=== PATIENT | male | born 1970 | race Caucasian/White ===

== ENCOUNTER 2017-09-01 08:45 | Emergency (ER) | payer OTHER ==
[~2017-09-01] VITALS: Ht 177.8 cm; Wt 86.2 kg
[~2017-09-01 08:45] MED LIST: ALBU8HFA2 INH; ALBU90I INH; ALBU90OI INH; AZIT250 PO; AZIT500 PO; CEPH500 PO; CHLO25 PO; CIPR500 PO; CLIN150 PO; CODGUAEL PO; CYCL10 PO; DOXY100 PO; GUAI120S1 PO; GUAI600T33 PO; HYDACE5 PO; HYDMOR2; HYDR1TAB94 PO; IBUP600 PO; IBUP800; IBUPRO; IBUPROFEN; KETO10 PO; METPRE4DP PO; Monodox100 MG PO; NAPR500 PO; NAPR550 PO; Norco 5-325 Ta1 EACH PO; OMEP40CA12 PO; OSEL75CA PO; OXYACE5T PO; PHENY100ER; PHENY100ER PO; PHENY50CH; PRED10 PO; PRED20 PO; PROCODE120 PO; PROM25 PO; Prednisone20 MG PO; Pulmicort Fle180 MCG INH; RXOXYACE PO; SILDENAFIL20 MG PO; SULTRIDS PO; Ultram50 MG PO; VICODEN; Ventolin5 MG/1 ML INH; Zithromax250 MG PO
[2017-09-01] MEDS ORDERED: Zithromax250 MG PO (10:08)
[2017-09-01] MEDS ORDERED: ALBU90OI INH (10:08)
[2017-09-01] MEDS ORDERED: Prednisone20 MG PO (10:08)
[2017-09-01] MEDS ORDERED: BENZ100A PO (10:08)
== END 2017-09-01 10:29 | disposition home or self-care (01) ==
LOC: ER 08:45
DX: R05 Cough (principal); Z88.0 Allergy status to penicillin; Z88.8 Allergy status to other drugs, medicaments and biological substances; Z79.899 Other long term (current) drug therapy; J45.909 Unspecified asthma, uncomplicated; G40.909 Epilepsy, unspecified, not intractable, without status epilepticus; F17.210 Nicotine dependence, cigarettes, uncomplicated
CPT/HCPCS: 71046; 99284

== ENCOUNTER → 2018-04-17 | Outpatient (CLI) | payer OTHER ==
[~2018-04-17] MED LIST changes: +BENZ100A PO
[2018-04-17 11:49] LABS: Dilantin (Phenytoin), Total 17.3 ug/mL (10.0-20.0)
== END | disposition home or self-care (01) ==
LOC: LAB UCHC 08:52 → LAB SHORT 08:52 → EDSTATUS 12:41
PROVIDERS: Family Medicine
DX: G40.909 Epilepsy, unspecified, not intractable, without status epilepticus (principal)
CPT/HCPCS: 80185

== ENCOUNTER 2018-08-28 19:56 | Emergency (ER) | payer OTHER ==
[~2018-08-28] VITALS: Ht 175.3 cm; Wt 81.7 kg
== END 2018-08-28 21:29 | disposition left against medical advice (07) ==
LOC: ER 19:56
DX: Z53.21 Procedure and treatment not carried out due to patient leaving prior to being seen by health care provider (principal)

== ENCOUNTER 2021-02-05 12:06 | Emergency (ER) | payer OTHER ==
[~2021-02-05] VITALS: Ht 175.3 cm; Wt 86.2 kg
[2021-02-05] MEDS ORDERED: ALBU90OI INH (13:20)
== END 2021-02-05 13:31 | disposition home or self-care (01) ==
LOC: ER 12:06
DX: B34.9 Viral infection, unspecified (principal); Z20.822 Contact with and (suspected) exposure to COVID-19; Z88.0 Allergy status to penicillin; Z88.6 Allergy status to analgesic agent; J45.909 Unspecified asthma, uncomplicated; G40.909 Epilepsy, unspecified, not intractable, without status epilepticus; F17.210 Nicotine dependence, cigarettes, uncomplicated
CPT/HCPCS: 71045; 99284-25; A9270

== ENCOUNTER 2021-04-01 08:42 | Emergency (ER) | payer OTHER ==
[~2021-04-01] VITALS: Ht 175.3 cm; Wt 77.1 kg
[2021-04-01] MEDS ORDERED: XARELTO15 MG PO (09:33)
== END 2021-04-01 10:02 | disposition home or self-care (01) ==
LOC: ER 08:42
DX: I82.811 Embolism and thrombosis of superficial veins of right lower extremity (principal); D68.2 Hereditary deficiency of other clotting factors; G40.909 Epilepsy, unspecified, not intractable, without status epilepticus; J44.9 Chronic obstructive pulmonary disease, unspecified; F17.210 Nicotine dependence, cigarettes, uncomplicated; Z88.0 Allergy status to penicillin; Z88.6 Allergy status to analgesic agent; Z79.899 Other long term (current) drug therapy

== ENCOUNTER 2021-12-21 19:51 | Emergency (ER) | payer OTHER ==
[~2021-12-21] VITALS: Ht 177.8 cm; Wt 86.2 kg
[~2021-12-21 19:51] MED LIST changes: +XARELTO15 MG PO
== END 2021-12-21 21:49 | disposition home or self-care (01) ==
LOC: ER 19:51
DX: S20.211A Contusion of right front wall of thorax, initial encounter (principal); J45.909 Unspecified asthma, uncomplicated; F17.210 Nicotine dependence, cigarettes, uncomplicated; X50.0XXA Overexertion from strenuous movement or load, initial encounter; Z88.0 Allergy status to penicillin; Z88.6 Allergy status to analgesic agent; Z88.8 Allergy status to other drugs, medicaments and biological substances; Z79.02 Long term (current) use of antithrombotics/antiplatelets
CPT/HCPCS: 71101; A9270

== ENCOUNTER 2022-02-23 06:53 | Emergency (ER) | payer OTHER ==
[~2022-02-23] VITALS: Ht 177.8 cm; Wt 86.2 kg
[2022-02-23 08:18] LABS: Influenza B, PCR NEGATIVE (NEGATIVE); Resp Syncytial Virus, PCR NEGATIVE (NEGATIVE); SARS-Cov-2 (COVID-19) PCR, MMC NEGATIVE (NEGATIVE)
[2022-02-23 08:38] LABS: Influenza A, PCR POSITIVE (NEGATIVE)
== END 2022-02-23 09:36 | disposition home or self-care (01) ==
LOC: ER 06:53
PROVIDERS: Student in an Organized Health Care Education/Training Program
DX: J10.1 Influenza due to other identified influenza virus with other respiratory manifestations (principal); J45.901 Unspecified asthma with (acute) exacerbation; J44.9 Chronic obstructive pulmonary disease, unspecified; G40.909 Epilepsy, unspecified, not intractable, without status epilepticus; F17.210 Nicotine dependence, cigarettes, uncomplicated; Z20.822 Contact with and (suspected) exposure to COVID-19; Z88.0 Allergy status to penicillin; Z88.5 Allergy status to narcotic agent; Z88.6 Allergy status to analgesic agent; Z79.899 Other long term (current) drug therapy; Z79.01 Long term (current) use of anticoagulants
CPT/HCPCS: 0241U; 71046; 94640; 94664; J1885

== ENCOUNTER 2022-10-12 10:29 | Day surgery (SDC) | payer OTHER ==
[~2022-10-12] VITALS: Ht 175.3 cm; Wt 86.0 kg
[~2022-10-12 10:29] MED LIST changes: +IBUP200 PO; +XARELTO20 MG PO
[2022-10-12 12:56] VITALS: BP 104/71
== END 2022-10-12 12:32 | disposition home or self-care (01) ==
LOC: ORSCSDS 10:29
PROVIDERS: Internal Medicine Gastroenterology
PROC: 0DB98ZX Excision of Duodenum, Via Natural or Artificial Opening Endoscopic, Diagnostic (ICD-10-PCS; principal; 2022-10-12 12:15)
PROC: 0DB78ZX Excision of Stomach, Pylorus, Via Natural or Artificial Opening Endoscopic, Diagnostic (ICD-10-PCS; principal; 2022-10-12 12:15)
DX: R14.0 Abdominal distension (gaseous) (principal); D68.51 Activated protein C resistance; Z86.718 Personal history of other venous thrombosis and embolism; Z79.01 Long term (current) use of anticoagulants; Z86.73 Personal history of transient ischemic attack (TIA), and cerebral infarction without residual deficits; Z79.899 Other long term (current) drug therapy; F17.210 Nicotine dependence, cigarettes, uncomplicated
CPT/HCPCS: 88305; 88342; J2704; J7120